=== PATIENT | female | born 1990 | race Caucasian/White ===

== ENCOUNTER 2018-06-02 14:14 | Inpatient (IN) | payer MEDICAID, SELFPAY ==
[2018-06-02 14:33] VITALS: BMI 23.7
[2018-06-02 14:52] VITALS: BP 124/78; PULSE 99; RESP 18; TEMP 37.1
--- NOTE | 2018-06-02 15:24 | PCM.HP.STD ---
Problem List (1) Alcohol withdrawal Status: Acute (2) Opiate withdrawal Status: Acute History of Present Illness Date of Admission: 06/02/18 Chief Complaint: heroin withdrawal The patient is a 28 year old F who presents seeking treatment for her heroin and alcohol. Patient last use was last night. Patient presented to [facility] and her intake scores were 18 and 15 for CIWA and CINA, respectively. Patient to be admitted for further treatment for withdrawal symptoms. Patient currently complaining of nausea, abdominal cramps, restless legs, myalgias. [] Past Medical History Medical History: Medical History (Last Updated 06/02/18 @ 15:27 by Charles Odonnell DO) Alcohol abuse F10.10 Diabetes mellitus type 1 E10.9 on insulin pump Diabetic neuropathy E11.40 Heroin abuse F11.10 Allergies No Known Allergies Allergy (Verified 06/02/18 15:01) Home Medications: Ambulatory Orders Medication Instructions Recorded Fluoxetine [Prozac] 20 mg PO DAILY 06/02/18 Gabapentin 600 mg PO QHS 06/02/18 Gabapentin [Neurontin] 300 mg PO DAILY 06/02/18 Insulin Lispro [Humalog] 0 unit 06/02/18 Surgical History: no surgical history Psychiatric History: No pertinent psych hx [employer] History: No pertinent [employer] history Lives: With Family Smoking Status: Heavy Smoker (>10/day) Tobacco Use: Cigarettes Alcohol: Heavy - 1 pint of vodka/day Drugs: Heroin - *Family History Maternal History Items: No pertinent history Review of Systems Constitutional: Reports: Chills. Denies: Anorexia, Fever Eyes: Denies: Blurred vision, Double vision HEENT: Denies: Head Aches, Sinus Congestion, Sinus Drainage Cardiovascular: Denies: Chest Pain, Palpitations Respiratory: Denies: Cough, Shortness of breath at rest, Sputum production Gastrointestinal: Reports: Abdominal Pain, Nausea. Denies: Vomiting Genitourinary: Denies: Dysuria Musculoskeletal: Reports: - - diffuse myalgias. Denies: Joint Pain, Joint Tenderness Skin: Denies: Dryness, Jaundice Neurological: Denies: Numbness, Tingling, Focal weakness Psychiatric: Denies: Anxiety, Depression Endocrine: Denies: Change in Body Habitus, Heat/ Cold Intolerance Hematologic/ Lymphatic: Denies: Easy Bruising, Easy Bleeding, Hx of blood clot Comment: All review of systems are negative except as mentioned in the history of present illness and the other review of systems. VTE Information - Inpt Only VTE Present on Admission: No VTE Mechan Device Prophylaxis: None VTE Pharm Prophylaxis ordered?: No Reason prophylaxis not ordered:: Procedure Not Indicated Patient Problems: Active and Suspected Problems Alcohol withdrawal (Acute) Opiate withdrawal (Acute) - Physical Exam General: Alert, Cooperative, No apparent distress HEENT: Atraumatic, Normocephalic Oral: Moist Mucosa, No Gingival or Mucosal Lesions/ Ulcerations Neck: No Nodes, Thyroid Normal Size and Texture Lungs: Clear to auscultation, Normal air movement, No rhonchi, No wheeze Cardiovascular: Regular rate, Regular Rhythm, Normal S1, Normal S2, No murmurs Abdomen: Bowel Sounds Present, Soft, Non Tender, Non-Distended, No Hepato-splenomegaly Extremities: No edema, No Calf Tenderness Skin: No rashes, No breakdown Musculoskeletal: No Tenderness to Palpation of Joints or Extremities, No Muscle Wasting Psych/Mental Status: Appropriate, Anxious Vital Signs Temp Pulse Resp BP 37.1 C 99 18 124/78 H 06/02/18 14:52 06/02/18 14:52 06/02/18 14:52 06/02/18 14:52 Oxygen Delivery Method Room Air Weight: 66.7 kg Body Mass Index (BMI) 23.7 Assessment/Plan All Active Problems Alcohol withdrawal (Acute) Opiate withdrawal (Acute) 1. Acute heroin/opiate withdrawal pt with CINA score of 15 Patient will be started on the Subutex taper for medical stabilization for opiates. Plus patient also have other medications to help her with other somatic symptoms. [facility] to facilitate outpatient follow-up once patient can be discharged. Anticipated date of discharge will be June 05. Patient states that she does not share needles but does reuses needles. Check hepatitis C antibody as well HIV 2. Alcohol abuse Patient drinks a pint of vodka per day Patient had a calculated CIWA score of 18, however some this may be overlapped with her opiate withdrawal I am going to hold off on any scheduled benzodiazepines at this time as a feel most of her symptoms are probably related with opiate withdrawal rather than alcohol withdrawal. Patient will have as needed lorazepam for symptoms do get severe enough and if she does start to get more severe than we could certainly reassess and put her on scheduled benzodiazepines but I would like to hold off at this point in time as I do not feel that her symptoms are completely attributable to alcohol rather opiate withdrawal. Patient be on a multivitamin 3. Diabetes mellitus type 1 Patient has an insulin pump and is comfortable managing her insulin Will check periodic with meals blood glucose 4. Venous thromboembolism risk: Low. Encourage patient to ambulate. Code Visit Inpatient E&M: 12264 Init Hosp L2
--- NOTE | 2018-06-02 15:28 | HP.PCM_ITS ---
Problem List (1) Alcohol withdrawal Status: Acute (2) Opiate withdrawal Status: Acute History of Present Illness Date of Admission: 06/02/18 Chief Complaint: heroin withdrawal The patient is a 28 year old F who presents seeking treatment for her heroin and alcohol. Patient last use was last night. Patient presented to [facility] and her intake scores were 18 and 15 for CIWA and CINA, respectively. Patient to be admitted for further treatment for withdrawal symptoms. Patient currently complaining of nausea, abdominal cramps, restless legs, myalgias. [] Past Medical History Medical History: Medical History (Last Updated 06/02/18 @ 15:27 by Charles Odonnell DO) Alcohol abuse F10.10 Diabetes mellitus type 1 E10.9 on insulin pump Diabetic neuropathy E11.40 Heroin abuse F11.10 Allergies No Known Allergies Allergy (Verified 06/02/18 15:01) Home Medications: Ambulatory Orders Medication Instructions Recorded Fluoxetine [Prozac] 20 mg PO DAILY 06/02/18 Gabapentin 600 mg PO QHS 06/02/18 Gabapentin [Neurontin] 300 mg PO DAILY 06/02/18 Insulin Lispro [Humalog] 0 unit 06/02/18 Surgical History: no surgical history Psychiatric History: No pertinent psych hx [employer]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 Denies: Anorexia, Fever Eyes: Denies: Blurred vision, Double vision HEENT: Denies: Head Aches, Sinus Congestion, Sinus Drainage Cardiovascular: Denies: Chest Pain, Palpitations Respiratory: Denies: Cough, Shortness of breath at rest, Sputum production Gastrointestinal: Reports: Abdominal Pain, Nausea. Denies: Vomiting Genitourinary: Denies: Dysuria Musculoskeletal: Reports: - - diffuse myalgias. Denies: Joint Pain, Joint Tenderness Skin: Denies: Dryness, Jaundice Neurological: Denies: Numbness, Tingling, Focal weakness Psychiatric: Denies: Anxiety, Depression Endocrine: Denies: Change in Body Habitus, Heat/ Cold Intolerance Hematologic/ Lymphatic: Denies: Easy Bruising, Easy Bleeding, Hx of blood clot Comment: All review of systems are negative except as mentioned in the history of present illness and the other review of systems. VTE Information - Inpt Only VTE Present on Admission: No VTE Mechan Device Prophylaxis: None VTE Pharm Prophylaxis ordered?: No Reason prophylaxis not ordered:: Procedure Not Indicated Patient Problems: Active and Suspected Problems Alcohol withdrawal (Acute) Opiate withdrawal (Acute) - Physical Exam General: Alert, Cooperative, No apparent distress HEENT: Atraumatic, Normocephalic Oral: Moist Mucosa, No Gingival or Mucosal Lesions/ Ulcerations Neck: No Nodes, Thyroid Normal Size and Texture Lungs: Clear to auscultation, Normal air movement, No rhonchi, No wheeze Cardiovascular: Regular rate, Regular Rhythm, Normal S1, Normal S2, No murmurs Abdomen: Bowel Sounds Present, Soft, Non Tender, Non-Distended, No Hepato- splenomegaly Extremities: No edema, No Calf Tenderness Skin: No rashes, No breakdown Musculoskeletal: No Tenderness to Palpation of Joints or Extremities, No Muscle Wasting Psych/Mental Status: Appropriate, Anxious Vital Signs Temp Pulse Resp BP 37.1 C 99 18 124/78 H 06/02/18 14:52 06/02/18 14:52 06/02/18 14:52 06/02/18 14:52 Oxygen Delivery Method Room Air Weight: 66.7 kg Body Mass Index (BMI) 23.7 Assessment/Plan All Active Problems Alcohol withdrawal (Acute) Opiate withdrawal (Acute) 1. Acute heroin/opiate withdrawal * pt with CINA score of 15 * Patient will be started on the Subutex taper for medical stabilization for opiates. Plus patient also have other medications to help her with other somatic symptoms. * [facility] to facilitate outpatient follow-up once patient can be discharged. Anticipated date of discharge will be June 05. * Patient states that she does not share needles but does reuses needles. * Check hepatitis C antibody as well HIV 2. Alcohol abuse * Patient drinks a pint of vodka per day * Patient had a calculated CIWA score of 18, however some this may be overlapped with her opiate withdrawal * I am going to hold off on any scheduled benzodiazepines at this time as a feel most of her symptoms are probably related with opiate withdrawal rather than alcohol withdrawal. * Patient will have as needed lorazepam for symptoms do get severe enough and if she does start to get more severe than we could certainly reassess and put her on scheduled benzodiazepines but I would like to hold off at this point in time as I do not feel that her symptoms are completely attributable to alcohol rather opiate withdrawal. * Patient be on a multivitamin 3. Diabetes mellitus type 1 * Patient has an insulin pump and is comfortable managing her insulin * Will check periodic with meals blood glucose 4. Venous thromboembolism risk: Low. Encourage patient to ambulate. Code Visit Inpatient E&M: 82694 Init Hosp L2
[2018-06-02] MEDS: Methocarbamol 750 MG Tablet PO (16:13)
[2018-06-02] MEDS: Ibuprofen 600 MG Tablet PO (16:14)
[2018-06-02] MEDS: cloNIDine HCl 0.1 MG Tablet PO ×2 (16:14→21:16)
[2018-06-02] MEDS: Dicyclomine 10 MG Capsule 20 MG PO (16:15)
[2018-06-02] MEDS: Buprenorphine HCl 2 MG TAB.SUBL SL (16:15)
[2018-06-02 16:21] LABS: Absolute Lymphocyte Count 1.52 X10^3/ul (0.83-4.51); Absolute Neutrophil Count 2.7 X10^3/uL (2.0-7.7); Basophil# 0.02 X10^3/uL; Basophil% 0.4 % (0-1); Eosinophils% 2.1 % (0-5); Hematocrit 37.9 % (37-47); Hemoglobin 12.7 g/dl (12.0-15.0); Lymphocyte # 1.52 X10^3/ul (4.0); Lymphocyte % 32.5 % (19-41); Mean Corp Hgb Conc 33.5 g/gl (32-36); Mean Corpuscular Hgb 28.5 pg (27.0-32.0); Mean Corpuscular Volume 85.2 fL (81-99); Mean Platelet Vol. 9.9 fl (6.2-12.0); Monocyte# 0.36 X10^3/uL; Monocyte% 7.7 % (0-10); Neutrophil # 2.68 X10^3/uL (2.7-7.7); Neutrophil % 57.3 % (47-70); POSITIVE COUNT NO; POSITIVE DIFFERENTIAL NO; POSITIVE MORPHOLOGY NO; Platelet Count 229 K/mm3 (150-450); RBC Distribution Width CV 13.1 % (11.6-14.6); RBC Distribution Width SD 40.5 fl (35.1-43.9); Red Blood Count 4.45 M/mm3 (4.2-5.4); White Blood Count 4.7 K/mm3 (4.4-11.0)
[2018-06-02 16:41] LABS: Bedside Glucose 361 mg/dL (70-110)
[2018-06-02 16:57] LABS: ALB/GLOB Ratio 0.8 RATIO (0.9-2.4); AST(SGOT) 51 U/L (15-37); Alanine Aminotransfer ALT/SGPT 51 U/L (13-56); Albumin, Serum 3.6 g/dL (3.2-5.0); Alkaline Phosphatase 132 U/L (45-117); Anion Gap 7 (5-15); BUN 20 mg/dL (7-18); BUN/Creat Ratio 15.7 RATIO (10-20); Calcium,Total 8.8 mg/dL (8.5-10.1); Chloride 96 mmol/L (98-107); Creatinine, Serum 1.27 mg/dL (0.55-1.02); EST Glomerular Filtration Rate 52 mL/min (>60); Est Glom Filt Rate - Afr Amer 63 mL/min (>60); Estimated Creatinine Clearance 60.64 ml/min; Globulin 4.7 g/dL (2.2-4.2); Glucose 293 mg/dL (74-106); Potassium 3.3 mmol/L (3.5-5.1); Protein, Total 8.3 g/dL (6.4-8.2); Sodium Level 135 mmol/L (136-145)
[2018-06-02 17:09] LABS: Pregnancy, Serum, hCG Quali. NEGATIVE Negative (0-9 Nonpreg)
[2018-06-02 17:43] LABS: HIV - WCH Non-Reactive (Nonreactive)
[2018-06-02 21:10] VITALS: BP 113/82; PULSE 110; RESP 16; TEMP 37.2
[2018-06-02] MEDS: traZODone 50 MG Tablet PO (21:17)
[2018-06-02] MEDS: hydrOXYzine PAM 25 MG Capsule 50 MG PO (21:17)
[2018-06-02] MEDS: LORazepam 1 MG Tablet 2 MG PO (21:17)
[2018-06-02 21:30] LABS: Bedside Glucose 351 mg/dL (70-110)
[2018-06-03] VITALS (10 sets, daily range): BP systolic 94–144; BP diastolic 72–121; PULSE 78–138; RESP 14–20; TEMP 36.5–36.9; O2SAT 99–100
[2018-06-03] MEDS: Ibuprofen 600 MG Tablet PO (00:50)
[2018-06-03] MEDS: Methocarbamol 750 MG Tablet PO ×2 (00:50→07:39)
[2018-06-03] MEDS: Buprenorphine HCl 2 MG TAB.SUBL SL ×3 (00:50→16:38)
[2018-06-03] MEDS: cloNIDine HCl 0.1 MG Tablet PO ×4 (00:52→07:39)
[2018-06-03] MEDS: LORazepam 1 MG Tablet 2 MG PO ×3 (02:53→05:10)
[2018-06-03] MEDS: hydrOXYzine PAM 25 MG Capsule 50 MG PO (03:35)
[2018-06-03] MEDS: chlordiazePOXIDE 25 MG Capsule 50 MG PO (05:23)
--- NOTE | 2018-06-03 05:24 | NURSING ---
Patient thrashing in bed, talking jibberish, very restles. Dr. Estrella to floor with orders. Will Monitor.
[2018-06-03 05:47] LABS: Amphetamine Urine VISTA NEGATIVE (<1000 ng/mL); Barbiturate Urine VISTA NEGATIVE (< 200 ng/mL); Benzodiazepine Urine VISTA NEGATIVE (< 200 ng/mL); Cocaine Urine VISTA NEGATIVE (< 300 ng/mL); Ecstacy Urine VISTA NEGATIVE (< 500 ng/mL); Methadone Urine VISTA NEGATIVE (< 300 ng/mL); PCP Urine VISTA NEGATIVE (< 25 ng/mL); THC Urine VISTA NEGATIVE (< 50 ng/mL); Vista UDS pH Range 6
[2018-06-03] MEDS: Gabapentin 300 MG Capsule PO (06:27)
[2018-06-03] MEDS: Haloperidol 1 MG Tablet 2 MG PO (06:27)
[2018-06-03] MEDS: Thiamine Hydrochloride 100 MG Tablet PO (07:33)
[2018-06-03] MEDS: Multivitamins,Therapeutic Tablet 1 TABLET PO (07:33)
[2018-06-03] MEDS: Folic Acid 1 MG Tablet PO (07:33)
[2018-06-03] MEDS: FLUoxetine 20 MG Capsule PO (07:34)
--- NOTE | 2018-06-03 08:27 | PCM.PN.HOSP ---
Patient Problems: Active and Suspected Problems (Last Updated 06/02/18 @ 15:27 by Charles Odonnell DO) Alcohol withdrawal (Acute) Opiate withdrawal (Acute) Subjective: confused early this am and this morning. Objective: patient noted to be in hallway confused. patient received buprenorphine at 0730, 2mg Haldol at 0627, 50mg Librium at 0523, lorazepam 2mg at 0253, 0406 and 0510. Vitals/I&O's: Vital Signs Temp Pulse Resp BP Pulse Ox 36.9 C 83 18 135/115 H 100 06/03/18 07:39 06/03/18 07:39 06/03/18 07:39 06/03/18 07:39 06/03/18 07:31 Oxygen Delivery Method Room Air Weight: 66.7 kg Body Mass Index (BMI) 23.7 Intake and Output for Last 24 Hours 06/01/18 06/02/18 06/03/18 23:59 23:59 23:59 Intake Total 400 / 400 1100 / 1100 Balance 400 / 400 1100 / 1100 General: Confused, - - very groggy. HEENT: Atraumatic, Normocephalic Oral: Moist Mucosa, No Gingival or Mucosal Lesions/ Ulcerations Neck: No Nodes, Thyroid Normal Size and Texture Lungs: Clear to auscultation, Normal air movement, No rhonchi, No wheeze Cardiovascular: Regular rate, Regular Rhythm, Normal S1, Normal S2, No murmurs Abdomen: Bowel Sounds Present, Soft, Non Tender, Non-Distended, No Hepato-splenomegaly Extremities: No clubbing, No edema, No Calf Tenderness Skin: No rashes, No breakdown Musculoskeletal: No Tenderness to Palpation of Joints or Extremities, No Muscle Wasting Neurological: Muscle tone normal, Sensory exam intact to light touch and pain Psych/Mental Status: - - confused Laboratory Results 06/02/18 16:09: WBC 4.7, RBC 4.45, Hgb 12.7, Hct 37.9, MCV 85.2, MCH 28.5, MCHC 33.5, RDW 13.1, RDW Differential 40.5, Plt Count 229, MPV 9.9, Immature Gran % (Auto) 0.000, Neut % (Auto) 57.3, Lymph % (Auto) 32.5, Loup % (Auto) 7.7, Eos % (Auto) 2.1, Baso % (Auto) 0.4, Absolute Neuts (auto) 2.7, Absolute Lymphs (auto) 1.52, Total Counted Not Reportable 06/02/18 16:09: Sodium 135 L, Potassium 3.3 L, Chloride 96 L, Carbon Dioxide 32.0, Anion Gap 7, BUN 20 H, Creatinine 1.27 H, Estim Creat Clear Calc 60.64, Est GFR (MDRD) Af Amer 63, Est GFR (MDRD) Non-Af 52 L, BUN/Creatinine Ratio 15.7, Glucose 293 H, Calcium 8.8, Total Bilirubin 0.40, AST 51 H, ALT 51, Alkaline Phosphatase 132 H, Total Protein 8.3 H, Albumin 3.6, Globulin 4.7 H, Albumin/Globulin Ratio 0.8 L 06/02/18 16:09: Serum , Qual NEGATIVE 06/02/18 16:09: Hepatitis C Ab (EIA) Pending, Hepatitis C Comment Pending 06/02/18 16:09: HIV 1&2 Antibody Non-Reactive 06/02/18 16:32: POC Glucose 361 H 06/02/18 21:22: POC Glucose 351 H 06/03/18 05:15: Urine Opiates Screen POSITIVE H, Urine Methadone Screen NEGATIVE, Ur Barbiturates Screen NEGATIVE, Ur Phencyclidine Scrn NEGATIVE, Ur Amphetamines Screen NEGATIVE, U Methamphetamin-MDMA NEGATIVE, U Benzodiazepines Scrn NEGATIVE, Urine Cocaine Screen NEGATIVE, U Cannabinoids Screen NEGATIVE, Ur Drug Screen Comment Current Medications Acetaminophen (Tylenol) 500 mg PO Q4H PRN PRN PRN Reason: Temp > 100.4 F Buprenorphine HCl (Buprenorphine Hcl) 4 mg SL Q8H PABLO PRN Reason: Taper Stop: 06/05/18 19:59 Last Admin: 06/03/18 07:32 Dose: 4 mg Clonidine (Catapres) 0.1 mg PO Q2H PRN PRN PRN Reason: Hot/Cold Sweats or Anxiety Last Admin: 06/03/18 07:39 Dose: 0.1 mg Dicyclomine HCl (Bentyl) 20 mg PO Q6H PRN PRN PRN Reason: abdominal discomfort Last Admin: 06/02/18 16:15 Dose: 20 mg Fluoxetine HCl (Prozac) 20 mg PO DAILY [facility] Last Admin: 06/03/18 07:34 Dose: 20 [facility] Last Admin: 06/03/18 07:33 Dose: 1 mg [facility]in) [facility] Last Admin: 06/03/18 06:27 Dose: 300 mg Gabapentin (Neurontin) 600 mg PO QHS [facility] Hydroxyzine HCl (Vistaril Vial) 50 mg IM Q6H PRN PRN PRN Reason: Breakthrough Anxiety Hydroxyzine Pamoate (Vistaril Pamoate Capsule) 50 mg PO Q6H PRN PRN PRN Reason: Mild Anxiety (score 1/3) Last Admin: 06/03/18 03:35 Dose: 50 mg Ibuprofen (Motrin) 600 mg PO Q8H PRN PRN PRN Reason: Mild-Moderate Pain (1-5/10) Last Admin: 06/03/18 00:50 Dose: 600 mg Loperamide HCl (Imodium) 2 - 4 mg PO UD PRN PRN Reason: LOOSE STOOLS Lorazepam (Ativan) 2 mg PO Q2H PRN PRN; Protocol PRN Reason: CIWA score > 8 but <15 Last Admin: 06/03/18 05:10 Dose: 2 mg Methocarbamol (Methocarbamol) 750 mg PO Q6H PRN PRN PRN Reason: Muscle Aches Last Admin: 06/03/18 07:39 Dose: 750 mg [facility]amin) [facility] Last Admin: 06/03/18 07:33 Dose: 1 tablet Nicotine (Nicoderm Cq (Pbkc)) 21 mg TRANSDERM. DAILY [facility] Last Admin: 06/03/18 07:33 Dose: 21 mg Thiamine HCl (Vitamin B1) [facility] Last Admin: 06/03/18 07:33 Dose: 100 mg Trazodone HCl (Desyrel) 50 mg PO QHS [facility] Last Admin: 06/02/18 21:17 Dose: 50 mg Medical Necessity - Tobacco Use Smoking Status: Heavy Smoker (>10/day) Tobacco Use: Cigarettes Assessment/Plan All Active Problems (Last Updated 06/02/18 @ 15:27 by Charles Odonnell DO) Alcohol withdrawal (Acute) Opiate withdrawal (Acute) 1. Acute heroin/opiate withdrawal pt with CINA score of 15 Patient will be started on the Subutex taper for medical stabilization for opiates. Plus patient also have other medications to help her with other somatic symptoms. [facility] to facilitate outpatient follow-up once patient can be discharged. Anticipated date of discharge will be June 05. Patient states that she does not share needles but does reuses needles. Check hepatitis C antibody as well HIV 2. Alcohol abuse Patient drinks a pint of vodka per day Patient had a calculated CIWA score of 18, however some this may be overlapped with her opiate withdrawal I am going to hold off on any scheduled benzodiazepines at this time as a feel most of her symptoms are probably related with opiate withdrawal rather than alcohol withdrawal. Patient will have as needed lorazepam for symptoms do get severe enough and if she does start to get more severe than we could certainly reassess and put her on scheduled benzodiazepines but I would like to hold off at this point in time as I do not feel that her symptoms are completely attributable to alcohol rather opiate withdrawal. Patient be on a multivitamin Patient received 4mg of ativan and 50mg of Librium this AM I am still concerned her symptoms may not be acute alcohol withdrawal, and now patient is lethargic, likely from medication DC Ativan altogether 3. Diabetes mellitus type 1 Patient has an insulin pump and is comfortable managing her insulin Will check periodic with meals blood glucose Now patient is confused and unable to administer her insulin pump. MBS were very elevated yesterday (not checked today) since patient cannot be relied upon to administer insulin pump, will DC and start her on basal and pradial insulin 4. Toxic encephalopathy apparently patient was confused last night, unclear how confused, but she is likely much worse now, which I feel is due to too many sedating medications 4. Venous thromboembolism risk: Low. Encourage patient to ambulate. Code Visit Inpatient E&M: 84078 Subs Hosp L3
--- NOTE | 2018-06-03 08:31 | PN_ITS ---
Patient Problems: Active and Suspected Problems (Last Updated 06/02/18 @ 15:27 by Charles Odonnell DO ) Alcohol withdrawal (Acute) Opiate withdrawal (Acute) Subjective: confused early this am and this morning. Objective: patient noted to be in hallway confused. patient received buprenorphine at 0730 , 2mg Haldol at 0627, 50mg Librium at 0523, lorazepam 2mg at 0253, 0406 and 0510. Vitals/I&O's: Vital Signs Temp Pulse Resp BP Pulse Ox 36.9 C 83 18 135/115 H 100 06/03/18 07:39 06/03/18 07:39 06/03/18 07:39 06/03/18 07:39 06/03/18 07:31 Oxygen Delivery Method Room Air Weight: 66.7 kg Body Mass Index (BMI) 23.7 Intake and Output for Last 24 Hours 06/01/18 06/02/18 06/03/18 23:59 23:59 23:59 Intake Total 400 / 400 1100 / 1100 Balance 400 / 400 1100 / 1100 General: Confused, - - very groggy. HEENT: Atraumatic, Normocephalic Oral: Moist Mucosa, No Gingival or Mucosal Lesions/ Ulcerations Neck: No Nodes, Thyroid Normal Size and Texture Lungs: Clear to auscultation, Normal air movement, No rhonchi, No wheeze Cardiovascular: Regular rate, Regular Rhythm, Normal S1, Normal S2, No murmurs Abdomen: Bowel Sounds Present, Soft, Non Tender, Non-Distended, No Hepato- splenomegaly Extremities: No clubbing, No edema, No Calf Tenderness Skin: No rashes, No breakdown Musculoskeletal: No Tenderness to Palpation of Joints or Extremities, No Muscle Wasting Neurological: Muscle tone normal, Sensory exam intact to light touch and pain Psych/Mental Status: - - confused Laboratory Results 06/02/18 16:09: WBC 4.7, RBC 4.45, Hgb 12.7, Hct 37.9, MCV 85.2, MCH 28.5, MCHC 33.5, RDW 13.1, RDW Differential 40.5, Plt Count 229, MPV 9.9, Immature Gran % ( Auto) 0.000, Neut % (Auto) 57.3, Lymph % (Auto) 32.5, [place] % (Auto) 7.7, Eos % ( Auto) 2.1, Baso % (Auto) 0.4, Absolute Neuts (auto) 2.7, Absolute Lymphs (auto) 1.52, Total Counted Not Reportable 06/02/18 16:09: Sodium 135 L, Potassium 3.3 L, Chloride 96 L, Carbon Dioxide 32.0, Anion Gap 7, BUN 20 H, Creatinine 1.27 H, Estim Creat Clear Calc 60.64, Est GFR (MDRD) Af Amer 63, Est GFR (MDRD) Non-Af 52 L, BUN/Creatinine Ratio 15.7 , Glucose 293 H, Calcium 8.8, Total Bilirubin 0.40, AST 51 H, ALT 51, Alkaline Phosphatase 132 H, Total Protein 8.3 H, Albumin 3.6, Globulin 4.7 H, Albumin/ Globulin Ratio 0.8 L 06/02/18 16:09: Serum , Qual NEGATIVE 06/02/18 16:09: Hepatitis C Ab (EIA) Pending, Hepatitis C Comment Pending 06/02/18 16:09: HIV 1&2 Antibody Non-Reactive 06/02/18 16:32: POC Glucose 361 H 06/02/18 21:22: POC Glucose 351 H 06/03/18 05:15: Urine Opiates Screen POSITIVE H, Urine Methadone Screen NEGATIVE , Ur Barbiturates Screen NEGATIVE, Ur Phencyclidine Scrn NEGATIVE, Ur Amphetamines Screen NEGATIVE, U Methamphetamin-MDMA NEGATIVE, U Benzodiazepines Scrn NEGATIVE, Urine Cocaine Screen NEGATIVE, U Cannabinoids Screen NEGATIVE, Ur Drug Screen Comment Current Medications Acetaminophen (Tylenol) 500 mg PO Q4H PRN PRN PRN Reason: Temp > 100.4 F Buprenorphine HCl (Buprenorphine Hcl) 4 mg SL Q8H PABLO PRN Reason: Taper Stop: 06/05/18 19:59 Last Admin: 06/03/18 07:32 Dose: 4 mg Clonidine (Catapres) 0.1 mg PO Q2H PRN PRN PRN Reason: Hot/Cold Sweats or Anxiety Last Admin: 06/03/18 07:39 Dose: 0.1 mg Dicyclomine HCl (Bentyl) 20 mg PO Q6H PRN PRN PRN Reason: abdominal discomfort Last Admin: 06/02/18 16:15 Dose: 20 mg Fluoxetine HCl (Prozac) 20 mg PO DAILY [facility] Last Admin: 06/03/18 07:34 Dose: 20 mg [facility] ([facility] Acid) [facility] Last Admin: 06/03/18 07:33 Dose: 1 mg Gabapentin (Neurontin) [facility] Last Admin: 06/03/18 06:27 Dose: 300 mg Gabapentin (Neurontin) 600 mg PO QHS [facility] Hydroxyzine HCl (Vistaril Vial) 50 mg IM Q6H PRN PRN PRN Reason: Breakthrough Anxiety Hydroxyzine Pamoate (Vistaril Pamoate Capsule) 50 mg PO Q6H PRN PRN PRN Reason: Mild Anxiety (score 1/3) Last Admin: 06/03/18 03:35 Dose: 50 mg Ibuprofen (Motrin) 600 mg PO Q8H PRN PRN PRN Reason: Mild-Moderate Pain (1-5/10) Last Admin: 06/03/18 00:50 Dose: 600 mg Loperamide HCl (Imodium) 2 - 4 mg PO UD PRN PRN Reason: LOOSE STOOLS Lorazepam (Ativan) 2 mg PO Q2H PRN PRN; Protocol PRN Reason: CIWA score > 8 but <15 Last Admin: 06/03/18 05:10 Dose: 2 mg Methocarbamol (Methocarbamol) 750 mg PO Q6H PRN PRN PRN Reason: Muscle Aches Last Admin: 06/03/18 07:39 Dose: 750 mg Multivitamins (Multivitamin) [facility] Last Admin: 06/03/18 07:33 Dose: 1 tablet Nicotine (Nicoderm Cq (Pbkc)) 21 mg TRANSDERM. DAILY [facility] Last Admin: 06/03/18 07:33 Dose: 21 mg Thiamine HCl (Vitamin B1) [facility] Last Admin: 06/03/18 07:33 Dose: 100 mg Trazodone HCl (Desyrel) 50 mg PO QHS [facility] Last Admin: 06/02/18 21:17 Dose: 50 mg Medical Necessity - Tobacco Use Smoking Status: Heavy Smoker (>10/day) Tobacco Use: Cigarettes Assessment/Plan All Active Problems (Last Updated 06/02/18 @ 15:27 by Charles Odonnell DO) Alcohol withdrawal (Acute) Opiate withdrawal (Acute) 1. Acute heroin/opiate withdrawal * pt with CINA score of 15 * Patient will be started on the Subutex taper for medical stabilization for opiates. Plus patient also have other medications to help her with other somatic symptoms. * [facility] to facilitate outpatient follow-up once patient can be discharged. Anticipated date of discharge will be June 05. * Patient states that she does not share needles but does reuses needles. * Check hepatitis C antibody as well HIV 2. Alcohol abuse * Patient drinks a pint of vodka per day * Patient had a calculated CIWA score of 18, however some this may be overlapped with her opiate withdrawal * I am going to hold off on any scheduled benzodiazepines at this time as a feel most of her symptoms are probably related with opiate withdrawal rather than alcohol withdrawal. * Patient will have as needed lorazepam for symptoms do get severe enough and if she does start to get more severe than we could certainly reassess and put her on scheduled benzodiazepines but I would like to hold off at this point in time as I do not feel that her symptoms are completely attributable to alcohol rather opiate withdrawal. * Patient be on a multivitamin * Patient received 4mg of ativan and 50mg of Librium this AM * I am still concerned her symptoms may not be acute alcohol withdrawal, and now patient is lethargic, likely from medication * DC Ativan altogether 3. Diabetes mellitus type 1 * Patient has an insulin pump and is comfortable managing her insulin * Will check periodic with meals blood glucose * Now patient is confused and unable to administer her insulin pump. * MBS were very elevated yesterday (not checked today) * since patient cannot be relied upon to administer insulin pump, will DC and start her on basal and pradial insulin 4. Toxic encephalopathy * apparently patient was confused last night, unclear how confused, but she is likely much worse now, which I feel is due to too many sedating medications 4. Venous thromboembolism risk: Low. Encourage patient to ambulate. Code Visit Inpatient E&M: 72755 Subs Hosp L3
--- NOTE | 2018-06-03 08:48 | NURSING ---
Around 0730 this am VS obtained. Pt would not hold arms still and constantly trying to remove BP cuff. best reading obtained charted but movement noted to contribute to high BP.
[2018-06-03 09:16] LABS: Bedside Glucose > 500 mg/dL (70-110)
[2018-06-03 10:31] LABS: Glucose 760 mg/dL (74-106)
[2018-06-03] MEDS: Insulin Lispro 100 UNIT/ML INSULN.PEN 15 UNIT SC (10:55)
[2018-06-03 11:30] LABS: Bedside Glucose > 500 mg/dL (70-110)
[2018-06-03 11:31] LABS: BNP,B-Type NATRIURETIC PEPTIDE 46.3 pg/mL (0-100)
[2018-06-03 12:58] LABS: Anion Gap 12 (5-15); BUN 18 mg/dL (7-18); BUN/Creat Ratio 16.8 RATIO (10-20); Calcium,Total 8.8 mg/dL (8.5-10.1); Chloride 98 mmol/L (98-107); Creatinine, Serum 1.07 mg/dL (0.55-1.02); EST Glomerular Filtration Rate 64 mL/min (>60); Est Glom Filt Rate - Afr Amer 77 mL/min (>60); Estimated Creatinine Clearance 71.97 ml/min; Glucose 457 mg/dL (74-106); Potassium 3.9 mmol/L (3.5-5.1); Sodium Level 136 mmol/L (136-145)
[2018-06-03] MEDS: Insulin Lispro 100 UNIT/ML INSULN.PEN SQ ×3 (13:04→18:50)
[2018-06-03 13:56] LABS: Bedside Glucose 236 mg/dL (70-110)
[2018-06-03 17:00] LABS: Bedside Glucose 69 mg/dL (70-110)
[2018-06-03] MEDS: Glucerna Shake 120 ML LIQUID PO ×2 (18:30→22:25)
[2018-06-03 18:56] LABS: Bedside Glucose 219 mg/dL (70-110)
[2018-06-03] MEDS: Gabapentin 600 MG Tablet PO (22:25)
[2018-06-03 22:46] LABS: Bedside Glucose 220 mg/dL (70-110)
[2018-06-04] VITALS (7 sets, daily range): BP systolic 119–136; BP diastolic 75–92; PULSE 70–84; RESP 16–18; TEMP 36.5–37.1; O2SAT 99
[2018-06-04] MEDS: Buprenorphine HCl 2 MG TAB.SUBL SL ×3 (00:02→20:47)
[2018-06-04] MEDS: cloNIDine HCl 0.1 MG Tablet PO ×4 (02:50→21:27)
[2018-06-04] MEDS: hydrOXYzine PAM 25 MG Capsule 50 MG PO ×3 (02:50→21:27)
[2018-06-04 02:56] LABS: Bedside Glucose > 500 mg/dL (70-110)
[2018-06-04] MEDS: Methocarbamol 750 MG Tablet PO ×2 (03:12→14:17)
[2018-06-04] MEDS: Insulin Lispro 100 UNIT/ML INSULN.PEN 15 UNIT SC ×2 (03:23→06:02)
[2018-06-04 04:01] LABS: Absolute Lymphocyte Count 1.38 X10^3/ul (0.83-4.51); Absolute Neutrophil Count 3.9 X10^3/uL (2.0-7.7); Basophil# 0.02 X10^3/uL; Basophil% 0.3 % (0-1); Eosinophil# 0.13 X10^3/uL; Eosinophils% 2.2 % (0-5); Hematocrit 37.8 % (37-47); Hemoglobin 13.1 g/dl (12.0-15.0); Lymphocyte # 1.38 X10^3/ul (4.0); Lymphocyte % 23.2 % (19-41); Mean Corp Hgb Conc 34.7 g/gl (32-36); Mean Corpuscular Hgb 29.5 pg (27.0-32.0); Mean Corpuscular Volume 85.1 fL (81-99); Monocyte# 0.46 X10^3/uL; Monocyte% 7.7 % (0-10); Neutrophil # 3.94 X10^3/uL (2.7-7.7); Neutrophil % 66.4 % (47-70); POSITIVE COUNT NO; POSITIVE DIFFERENTIAL NO; POSITIVE MORPHOLOGY NO; Platelet Count 210 K/mm3 (150-450); RBC Distribution Width CV 12.6 % (11.6-14.6); RBC Distribution Width SD 38.4 fl (35.1-43.9); Red Blood Count 4.44 M/mm3 (4.2-5.4); White Blood Count 5.9 K/mm3 (4.4-11.0)
[2018-06-04 04:09] LABS: Anion Gap 14 (5-15); BUN 20 mg/dL (7-18); Calcium,Total 8.5 mg/dL (8.5-10.1); Chloride 93 mmol/L (98-107); Creatinine, Serum 1.25 mg/dL (0.55-1.02); EST Glomerular Filtration Rate 53 mL/min (>60); Est Glom Filt Rate - Afr Amer 65 mL/min (>60); Estimated Creatinine Clearance 61.61 ml/min; Glucose 878 mg/dL (74-106); Potassium 5.4 mmol/L (3.5-5.1); Sodium Level 131 mmol/L (136-145)
[2018-06-04] MEDS: Ibuprofen 600 MG Tablet PO ×2 (04:31→14:16)
[2018-06-04 04:34] LABS: Osmolality, Serum 322 mOsm/KG (275-295)
[2018-06-04 05:31] LABS: Bedside Glucose > 500 mg/dL (70-110)
[2018-06-04 06:06] LABS: Glucose 733 mg/dL (74-106)
[2018-06-04] MEDS: 0.9% Normal Saline 1,000 ML 999 ML IV (06:17)
--- NOTE | 2018-06-04 06:21 | NURSING ---
Dr Fair reviewed patient and ordered blood sugar levels every 2 hours and another fluid bolus after initial bolus complete. Possible start pt's own insulin pump later on today if patient's blood sugars lower below 300mg/dL and patient remains alert and orientated.
[2018-06-04] MEDS: 0.45% Normal Saline 1,000 ML 1000 ML IV (07:29)
[2018-06-04] MEDS: Thiamine Hydrochloride 100 MG Tablet PO (07:36)
[2018-06-04] MEDS: Multivitamins,Therapeutic Tablet 1 TABLET PO (07:36)
[2018-06-04] MEDS: Gabapentin 300 MG Capsule PO (07:36)
[2018-06-04] MEDS: Folic Acid 1 MG Tablet PO (07:36)
[2018-06-04 07:51] LABS: Anion Gap 13 (5-15); BUN 17 mg/dL (7-18); BUN/Creat Ratio 16.5 RATIO (10-20); Calcium,Total 8.2 mg/dL (8.5-10.1); Chloride 99 mmol/L (98-107); Creatinine, Serum 1.03 mg/dL (0.55-1.02); EST Glomerular Filtration Rate 67 mL/min (>60); Est Glom Filt Rate - Afr Amer 81 mL/min (>60); Estimated Creatinine Clearance 74.76 ml/min; Glucose 453 mg/dL (74-106); Potassium 3.6 mmol/L (3.5-5.1); Sodium Level 136 mmol/L (136-145)
[2018-06-04 08:01] LABS: Bedside Glucose 335 mg/dL (70-110)
[2018-06-04] MEDS: Insulin Lispro 100 UNIT/ML INSULN.PEN SC ×8 (08:07→22:44)
[2018-06-04] MEDS: Insulin Lispro 100 UNIT/ML INSULN.PEN SQ (08:07)
[2018-06-04] MEDS: 0.45% Normal Saline 1,000 ML 250 ML IV ×3 (08:54→18:01)
--- NOTE | 2018-06-04 09:56 | PCM.PN.HOSP ---
Patient Problems: Active and Suspected Problems (Last Updated 06/02/18 @ 15:27 by Charles Odonnell DO) Alcohol withdrawal (Acute) Opiate withdrawal (Acute) Subjective: Was yesterday and ambulating and mentating properly after the initial encephalopathy. This morning, patient is very somnolent and difficult to arouse so no history can be obtained directly from time. Patient has not received any potentiating medications this morning with the exception of her Suboxone. Given the fact that the patient is a [facility] patient patient did receive numerous candies and baked goods from the [employer] basket by the [employer]. Vitals/I&O's: Vital Signs Temp Pulse Resp BP Pulse Ox 36.8 C 70 18 136/92 H 99 06/04/18 02:49 06/04/18 04:49 06/04/18 02:49 06/04/18 04:49 06/04/18 02:46 Oxygen Delivery Method Room Air Weight: 66.7 kg Body Mass Index (BMI) 23.7 Intake and Output for Last 24 Hours 06/02/18 06/03/18 06/04/18 23:59 23:59 23:59 Intake Total 400 / 400 1340 / 1340 637 / 637 Balance 400 / 400 1340 / 1340 637 / 637 General: - - Somnolent. Afebrile. Awakes slightly to voice but then quickly dozes off HEENT: Atraumatic, Normocephalic Oral: Moist Mucosa, No Gingival or Mucosal Lesions/ Ulcerations Neck: No Nodes, Thyroid Normal Size and Texture Lungs: Clear to auscultation, Normal air movement, No rhonchi, No wheeze Cardiovascular: Regular rate, Regular Rhythm, Normal S1, Normal S2, No murmurs Abdomen: Bowel Sounds Present, Soft, Non Tender, Non-Distended, No Hepato-splenomegaly Extremities: No edema, No Calf Tenderness Skin: No rashes, No breakdown Laboratory Results 06/03/18 09:28: Glucose 760 H* 06/03/18 10:54: B-Natriuretic Peptide 46.3 06/03/18 11:18: Sodium 136, Potassium 3.9, Chloride 98, Carbon Dioxide 26.0, Anion Gap 12, BUN 18, Creatinine 1.07 H, Estim Creat Clear Calc 71.97, Est GFR (MDRD) Af Amer 77, Est GFR (MDRD) Non-Af 64, BUN/Creatinine Ratio 16.8, Glucose 457 H*, Calcium 8.8 06/03/18 11:28: POC Glucose > 500 H* 06/03/18 13:45: POC Glucose 236 H 06/03/18 16:44: POC Glucose 69 L 06/03/18 18:49: POC Glucose 219 H 06/03/18 22:20: POC Glucose 220 H 06/04/18 02:42: POC Glucose > 500 H* 06/04/18 03:25: WBC 5.9, RBC 4.44, Hgb 13.1, Hct 37.8, MCV 85.1, MCH 29.5, MCHC 34.7, RDW 12.6, RDW Differential 38.4, Plt Count 210, MPV 11.0, Immature Gran % (Auto) 0.200, Neut % (Auto) 66.4, Lymph % (Auto) 23.2, [place] % (Auto) 7.7, Eos % (Auto) 2.2, Baso % (Auto) 0.3, Absolute Neuts (auto) 3.9, Absolute Lymphs (auto) 1.38, Total Counted Not Reportable 06/04/18 03:25: Sodium Cancelled, Potassium Cancelled, Chloride Cancelled, Carbon Dioxide Cancelled, Anion Gap Cancelled, BUN Cancelled, Creatinine Cancelled, Estim Creat Clear Calc Cancelled, Est GFR (MDRD) Af Amer Cancelled, Est GFR (MDRD) Non-Af Cancelled, BUN/Creatinine Ratio Cancelled, Glucose Cancelled, Calcium Cancelled 06/04/18 03:25: Glucose Cancelled 06/04/18 03:25: Acetone Level NEGATIVE 06/04/18 03:25: Sodium 131 L, Potassium 5.4 H, Chloride 93 L, Carbon Dioxide 24.0, Anion Gap 14, BUN 20 H, Creatinine 1.25 H, Estim Creat Clear Calc 61.61, Est GFR (MDRD) Af Amer 65, Est GFR (MDRD) Non-Af 53 L, BUN/Creatinine Ratio 16.0, Glucose 878 H*, Calcium 8.5 06/04/18 03:25: Serum Osmolality 322 H 06/04/18 05:25: POC Glucose > 500 H* 06/04/18 05:35: Glucose 733 H* 06/04/18 07:30: Sodium 136, Potassium 3.6, Chloride 99, Carbon Dioxide 24.0, Anion Gap 13, BUN 17, Creatinine 1.03 H, Estim Creat Clear Calc 74.76, Est GFR (MDRD) Af Amer 81, Est GFR (MDRD) Non-Af 67, BUN/Creatinine Ratio 16.5, Glucose 453 H*, Calcium 8.2 L 06/04/18 07:57: POC Glucose 335 H 06/04/18 09:50: Sodium Pending, Potassium Pending, Chloride Pending, Carbon Dioxide Pending, Anion Gap Pending, BUN Pending, Creatinine Pending, Est GFR (MDRD) Af Amer Pending, Est GFR (MDRD) Non-Af Pending, BUN/Creatinine Ratio Pending, Glucose Pending, Calcium Pending Current Medications Acetaminophen (Tylenol) 500 mg PO Q4H PRN PRN PRN Reason: Temp > 100.4 F Buprenorphine HCl (Buprenorphine Hcl) 2 mg SL Q12H PABLO PRN Reason: Taper Stop: 06/05/18 19:59 Last Admin: 06/04/18 07:45 Dose: 2 mg Clonidine (Catapres) 0.1 mg PO Q2H PRN PRN PRN Reason: Hot/Cold Sweats or Anxiety Last Admin: 06/04/18 04:49 Dose: 0.1 mg Dextrose (D50w Syringe) 0 gm IV X1 PRN; Protocol PRN Reason: Hypoglycemia Dicyclomine HCl (Bentyl) 20 mg PO Q6H PRN PRN PRN Reason: abdominal discomfort Last Admin: 06/02/18 16:15 Dose: 20 mg Fluoxetine HCl (Prozac) 20 mg PO DAILY [facility] Last Admin: 06/03/18 07:34 Dose: 20 mg [facility]) [facility] Last Admin: 06/04/18 07:36 Dose: 1 mg Gabapentin (Neurontin) [facility] Last Admin: 06/04/18 07:36 Dose: 300 mg Gabapentin (Neurontin) 600 mg PO QHS [facility] Last Admin: 06/03/18 22:25 Dose: 600 mg Glucagon () 1 mg IM .X1 PRN PRN Reason: Hypoglycemia Hydroxyzine HCl (Vistaril Vial) 50 mg IM Q6H PRN PRN PRN Reason: Breakthrough Anxiety Hydroxyzine Pamoate (Vistaril Pamoate Capsule) 50 mg PO Q6H PRN PRN PRN Reason: Mild Anxiety (score 1/3) Last Admin: 06/04/18 02:50 Dose: 50 mg Sodium Chloride () 1,000 mls @ 250 mls/hr IV .Q4H [facility] Last Admin: 06/04/18 08:54 Dose: 250 mls/hr Ibuprofen (Motrin) 600 mg PO Q8H PRN PRN PRN Reason: Mild-Moderate Pain (1-5/10) Last Admin: 06/04/18 04:31 Dose: 600 mg Insulin Glargine (Lantus (Bkc)) 30 units SC BREAKFAST PABLO Insulin Human Lispro (Humalog Kwikpen (Bkc)) 0 unit SC Q2H PABLO PRN Reason: Protocol Last Admin: 06/04/18 08:07 Dose: 5 u Insulin Human Lispro (Humalog Kwikpen (Bkc)) 10 unit SQ BREAKFAST PABLO Insulin Human Lispro (Humalog Kwikpen (Bkc)) 10 unit SQ DINNER PABLO Insulin Human Lispro (Humalog Kwikpen (Bkc)) 10 unit SQ LUNCH PABLO Methocarbamol (Methocarbamol) 750 mg PO Q6H PRN PRN PRN Reason: Muscle Aches Last Admin: 06/04/18 03:12 Dose: 750 mg Multivitamins ([facility]itamin) [facility] Last Admin: 06/04/18 07:36 Dose: 1 tablet Nicotine (Nicoderm Cq (Pbkc)) 21 mg TRANSDERM. DAILY [facility] Last Admin: 06/03/18 07:33 Dose: 21 mg Nutritional Formula (Lactose Free) (Glucerna Shake) 120 ml PO 4X/DAY [facility] Last Admin: 06/03/18 22:25 Dose: 120 ml Thiamine HCl (Vitamin B1) [facility] Last Admin: 06/04/18 07:36 Dose: 100 mg Medical Necessity - Tobacco Use Smoking Status: Heavy Smoker (>10/day) Tobacco Use: Cigarettes Assessment/Plan All Active Problems (Last Updated 06/02/18 @ 15:27 by Charles Odonnell DO) Alcohol withdrawal (Acute) Opiate withdrawal (Acute) 1. Acute heroin/opiate withdrawal pt with CINA score of 15 Patient will be started on the Subutex taper for medical stabilization for opiates. Plus patient also have other medications to help her with other somatic symptoms. [employer] to facilitate outpatient follow-up once patient can be discharged. Anticipated date of discharge will be June 05. Patient states that she does not share needles but does reuses needles. Check hepatitis C antibody as well HIV 2. Alcohol abuse Patient drinks a pint of vodka per day Patient had a calculated CIWA score of 18, however some this may be overlapped with her opiate withdrawal I am going to hold off on any scheduled benzodiazepines at this time as a feel most of her symptoms are probably related with opiate withdrawal rather than alcohol withdrawal. Patient will have as needed lorazepam for symptoms do get severe enough and if she does start to get more severe than we could certainly reassess and put her on scheduled benzodiazepines but I would like to hold off at this point in time as I do not feel that her symptoms are completely attributable to alcohol rather opiate withdrawal. Patient be on a multivitamin Patient received 4mg of ativan and 50mg of Librium this AM I am still concerned her symptoms may not be acute alcohol withdrawal, and now patient is lethargic, likely from medication DC Ativan altogether 3. Diabetes mellitus type 1 Uncontrolled No evidence of DKA/HHS Patient had blood sugar is high as in the 800s but some this may be due to some dietary non-discretion of his further facilitated by staff giving her snacks of the [employer] basket. Advised staff that the patient is no longer has access to that given that she is a type I diabetic. Will check periodic with meals blood glucose Patient still confused and therefore cannot be interested at this time to manage her insulin pump. They have increased her Levemir to 30 and patient did receive 20 mg earlier this morning we will give her an additional 10 units. Additionally, add 10 units of NovoLog with meals plus sliding scale. Alexys patient's blood sugars will remain stable and that we can hold off on giving her Levemir tomorrow so that she can manage her insulin pump. But will depend on her mental status at that time which will hopefully be improved 4. Toxic encephalopathy apparently patient was confused last night, unclear how confused, but she is likely much worse now, which I feel is due to too many sedating medications Was improved last night but patient was up all night apparently and now is sleeping and difficult to arouse. Again, hold potentiating medications. 5. Venous thromboembolism risk: Low. Encourage patient to ambulate. Code Visit Inpatient E&M: 67822 Subs Hosp L2
--- NOTE | 2018-06-04 10:03 | PN_ITS ---
Patient Problems: Active and Suspected Problems (Last Updated 06/02/18 @ 15:27 by Charles Odonnell DO ) Alcohol withdrawal (Acute) Opiate withdrawal (Acute) Subjective: Was yesterday and ambulating and mentating properly after the initial encephalopathy. This morning, patient is very somnolent and difficult to arouse so no history can be obtained directly from time. Patient has not received any potentiating medications this morning with the exception of her Suboxone. Given the fact that the patient is a [facility] patient patient did receive numerous candies and baked goods from the [employer] basket by the [employer]. Vitals/I&O's: Vital Signs Temp Pulse Resp BP Pulse Ox 36.8 C 70 18 136/92 H 99 06/04/18 02:49 06/04/18 04:49 06/04/18 02:49 06/04/18 04:49 06/04/18 02:46 Oxygen Delivery Method Room Air Weight: 66.7 kg Body Mass Index (BMI) 23.7 Intake and Output for Last 24 Hours 06/02/18 06/03/18 06/04/18 23:59 23:59 23:59 Intake Total 400 / 400 1340 / 1340 637 / 637 Balance 400 / 400 1340 / 1340 637 / 637 General: - - Somnolent. Afebrile. Awakes slightly to voice but then quickly dozes off HEENT: Atraumatic, Normocephalic Oral: Moist Mucosa, No Gingival or Mucosal Lesions/ Ulcerations Neck: No Nodes, Thyroid Normal Size and Texture Lungs: Clear to auscultation, Normal air movement, No rhonchi, No wheeze Cardiovascular: Regular rate, Regular Rhythm, Normal S1, Normal S2, No murmurs Abdomen: Bowel Sounds Present, Soft, Non Tender, Non-Distended, No Hepato- splenomegaly Extremities: No edema, No Calf Tenderness Skin: No rashes, No breakdown Laboratory Results 06/03/18 09:28: Glucose 760 H* 06/03/18 10:54: B-Natriuretic Peptide 46.3 06/03/18 11:18: Sodium 136, Potassium 3.9, Chloride 98, Carbon Dioxide 26.0, Anion Gap 12, BUN 18, Creatinine 1.07 H, Estim Creat Clear Calc 71.97, Est GFR ( MDRD) Af Amer 77, Est GFR (MDRD) Non-Af 64, BUN/Creatinine Ratio 16.8, Glucose 457 H*, Calcium 8.8 06/03/18 11:28: POC Glucose > 500 H* 06/03/18 13:45: POC Glucose 236 H 06/03/18 16:44: POC Glucose 69 L 06/03/18 18:49: POC Glucose 219 H 06/03/18 22:20: POC Glucose 220 H 06/04/18 02:42: POC Glucose > 500 H* 06/04/18 03:25: WBC 5.9, RBC 4.44, Hgb 13.1, Hct 37.8, MCV 85.1, MCH 29.5, MCHC 34.7, RDW 12.6, RDW Differential 38.4, Plt Count 210, MPV 11.0, Immature Gran % (Auto) 0.200, Neut % (Auto) 66.4, Lymph % (Auto) 23.2, [place] % (Auto) 7.7, Eos % (Auto) 2.2, Baso % (Auto) 0.3, Absolute Neuts (auto) 3.9, Absolute Lymphs (auto ) 1.38, Total Counted Not Reportable 06/04/18 03:25: Sodium Cancelled, Potassium Cancelled, Chloride Cancelled, Carbon Dioxide Cancelled, Anion Gap Cancelled, BUN Cancelled, Creatinine Cancelled, Estim Creat Clear Calc Cancelled, Est GFR (MDRD) Af Amer Cancelled, Est GFR (MDRD) Non-Af Cancelled, BUN/Creatinine Ratio Cancelled, Glucose Cancelled, Calcium Cancelled 06/04/18 03:25: Glucose Cancelled 06/04/18 03:25: Acetone Level NEGATIVE 06/04/18 03:25: Sodium 131 L, Potassium 5.4 H, Chloride 93 L, Carbon Dioxide 24.0, Anion Gap 14, BUN 20 H, Creatinine 1.25 H, Estim Creat Clear Calc 61.61, Est GFR (MDRD) Af Amer 65, Est GFR (MDRD) Non-Af 53 L, BUN/Creatinine Ratio 16.0 , Glucose 878 H*, Calcium 8.5 06/04/18 03:25: Serum Osmolality 322 H 06/04/18 05:25: POC Glucose > 500 H* 06/04/18 05:35: Glucose 733 H* 06/04/18 07:30: Sodium 136, Potassium 3.6, Chloride 99, Carbon Dioxide 24.0, Anion Gap 13, BUN 17, Creatinine 1.03 H, Estim Creat Clear Calc 74.76, Est GFR ( MDRD) Af Amer 81, Est GFR (MDRD) Non-Af 67, BUN/Creatinine Ratio 16.5, Glucose 453 H*, Calcium 8.2 L 06/04/18 07:57: POC Glucose 335 H 06/04/18 09:50: Sodium Pending, Potassium Pending, Chloride Pending, Carbon Dioxide Pending, Anion Gap Pending, BUN Pending, Creatinine Pending, Est GFR ( MDRD) Af Amer Pending, Est GFR (MDRD) Non-Af Pending, BUN/Creatinine Ratio Pending, Glucose Pending, Calcium Pending Current Medications Acetaminophen (Tylenol) 500 mg PO Q4H PRN PRN PRN Reason: Temp > 100.4 F Buprenorphine HCl (Buprenorphine Hcl) 2 mg SL Q12H PABLO PRN Reason: Taper Stop: 06/05/18 19:59 Last Admin: 06/04/18 07:45 Dose: 2 mg Clonidine (Catapres) 0.1 mg PO Q2H PRN PRN PRN Reason: Hot/Cold Sweats or Anxiety Last Admin: 06/04/18 04:49 Dose: 0.1 mg Dextrose (D50w Syringe) 0 gm IV X1 PRN; Protocol PRN Reason: Hypoglycemia Dicyclomine HCl (Bentyl) 20 mg PO Q6H PRN PRN PRN Reason: abdominal discomfort Last Admin: 06/02/18 16:15 Dose: 20 mg Fluoxetine HCl (Prozac) 20 mg PO DAILY [facility] Last Admin: 06/03/18 07:34 Dose: 20 [facility] Last Admin: 06/04/18 07:36 Dose: 1 mg Gabapentin ([facility]urontin) [facility] Last Admin: 06/04/18 07:36 Dose: 300 mg Gabapentin (Neurontin) 600 mg PO QHS [facility] Last Admin: 06/03/18 22:25 Dose: 600 mg Glucagon () 1 mg IM .X1 PRN PRN Reason: Hypoglycemia Hydroxyzine HCl (Vistaril Vial) 50 mg IM Q6H PRN PRN PRN Reason: Breakthrough Anxiety Hydroxyzine Pamoate (Vistaril Pamoate Capsule) 50 mg PO Q6H PRN PRN PRN Reason: Mild Anxiety (score 1/3) Last Admin: 06/04/18 02:50 Dose: 50 mg Sodium Chloride () 1,000 mls @ 250 mls/hr IV .Q4H [facility] Last Admin: 06/04/18 08:54 Dose: 250 mls/hr Ibuprofen (Motrin) 600 mg PO Q8H PRN PRN PRN Reason: Mild-Moderate Pain (1-5/10) Last Admin: 06/04/18 04:31 Dose: 600 mg Insulin Glargine (Lantus (Bkc)) 30 units SC BREAKFAST PABLO Insulin Human Lispro (Humalog Kwikpen (Bkc)) 0 unit SC Q2H PABLO PRN Reason: Protocol Last Admin: 06/04/18 08:07 Dose: 5 u Insulin Human Lispro (Humalog Kwikpen (Bkc)) 10 unit SQ BREAKFAST PABLO Insulin Human Lispro (Humalog Kwikpen (Bkc)) 10 unit SQ DINNER PABLO Insulin Human Lispro (Humalog Kwikpen (Bkc)) 10 unit SQ LUNCH PABLO Methocarbamol (Methocarbamol) 750 mg PO Q6H PRN PRN PRN Reason: Muscle Aches Last Admin: 06/04/18 03:12 Dose: 750 mg Multivitamins ([facility]ivitamin) [facility] Last Admin: 06/04/18 07:36 Dose: 1 tablet Nicotine (Nicoderm Cq (Pbkc)) 21 mg TRANSDERM. DAILY [facility] Last Admin: 06/03/18 07:33 Dose: 21 mg Nutritional Formula (Lactose Free) (Glucerna Shake) 120 ml PO 4X/DAY [facility] Last Admin: 06/03/18 22:25 Dose: 120 ml Thiamine HCl (Vitamin B1) [facility] Last Admin: 06/04/18 07:36 Dose: 100 mg Medical Necessity - Tobacco Use Smoking Status: Heavy Smoker (>10/day) Tobacco Use: Cigarettes Assessment/Plan All Active Problems (Last Updated 06/02/18 @ 15:27 by Charles Odonnell DO) Alcohol withdrawal (Acute) Opiate withdrawal (Acute) 1. Acute heroin/opiate withdrawal * pt with CINA score of 15 * Patient will be started on the Subutex taper for medical stabilization for opiates. Plus patient also have other medications to help her with other somatic symptoms. * [employer] to facilitate outpatient follow-up once patient can be discharged. Anticipated date of discharge will be June 05. * Patient states that she does not share needles but does reuses needles. * Check hepatitis C antibody as well HIV 2. Alcohol abuse * Patient drinks a pint of vodka per day * Patient had a calculated CIWA score of 18, however some this may be overlapped with her opiate withdrawal * I am going to hold off on any scheduled benzodiazepines at this time as a feel most of her symptoms are probably related with opiate withdrawal rather than alcohol withdrawal. * Patient will have as needed lorazepam for symptoms do get severe enough and if she does start to get more severe than we could certainly reassess and put her on scheduled benzodiazepines but I would like to hold off at this point in time as I do not feel that her symptoms are completely attributable to alcohol rather opiate withdrawal. * Patient be on a multivitamin * Patient received 4mg of ativan and 50mg of Librium this AM * I am still concerned her symptoms may not be acute alcohol withdrawal, and now patient is lethargic, likely from medication * DC Ativan altogether 3. Diabetes mellitus type 1 * Uncontrolled * No evidence of DKA/HHS * Patient had blood sugar is high as in the 800s but some this may be due to some dietary non-discretion of his further facilitated by staff giving her snacks of the [employer] basket. Advised staff that the patient is no longer has access to that given that she is a type I diabetic. * Will check periodic with meals blood glucose * Patient still confused and therefore cannot be interested at this time to manage her insulin pump. They have increased her Levemir to 30 and patient did receive 20 mg earlier this morning we will give her an additional 10 units. Additionally, add 10 units of NovoLog with meals plus sliding scale. * Alexys patient's blood sugars will remain stable and that we can hold off on giving her Levemir tomorrow so that she can manage her insulin pump. But will depend on her mental status at that time which will hopefully be improved 4. Toxic encephalopathy * apparently patient was confused last night, unclear how confused, but she is likely much worse now, which I feel is due to too many sedating medications * Was improved last night but patient was up all night apparently and now is sleeping and difficult to arouse. * Again, hold potentiating medications. 5. Venous thromboembolism risk: Low. Encourage patient to ambulate. Code Visit Inpatient E&M: 59932 Subs Hosp L2
[2018-06-04 10:08] LABS: Anion Gap 10 (5-15); BUN 16 mg/dL (7-18); BUN/Creat Ratio 18.3 RATIO (10-20); Calcium,Total 8.3 mg/dL (8.5-10.1); Chloride 100 mmol/L (98-107); Creatinine, Serum 0.87 mg/dL (0.55-1.02); EST Glomerular Filtration Rate 81 mL/min (>60); Est Glom Filt Rate - Afr Amer 98 mL/min (>60); Estimated Creatinine Clearance 88.51 ml/min; Glucose 194 mg/dL (74-106); Potassium 3.4 mmol/L (3.5-5.1); Sodium Level 139 mmol/L (136-145)
[2018-06-04] MEDS: Glucerna Shake 120 ML LIQUID PO ×2 (10:18→14:00)
[2018-06-04] MEDS: FLUoxetine 20 MG Capsule PO (10:19)
[2018-06-04 10:21] LABS: Bedside Glucose 240 mg/dL (70-110)
[2018-06-04] MEDS: Insulin Lispro 100 UNIT/ML INSULN.PEN 10 UNIT SQ ×2 (12:27→17:35)
[2018-06-04 12:30] LABS: Bedside Glucose 217 mg/dL (70-110)
[2018-06-04 14:06] LABS: Bedside Glucose 272 mg/dL (70-110)
[2018-06-04] MEDS: Dicyclomine 10 MG Capsule 20 MG PO (14:16)
[2018-06-04 16:31] LABS: Bedside Glucose 335 mg/dL (70-110)
[2018-06-04 18:31] LABS: Bedside Glucose 425 mg/dL (70-110)
[2018-06-04 21:06] LABS: Bedside Glucose 273 mg/dL (70-110)
[2018-06-04] MEDS: Gabapentin 600 MG Tablet PO (21:36)
[2018-06-04 23:01] LABS: Bedside Glucose 237 mg/dL (70-110)
[2018-06-05] MEDS: cloNIDine HCl 0.1 MG Tablet PO (00:23)
[2018-06-05] MEDS: Insulin Lispro 100 UNIT/ML INSULN.PEN SC ×4 (00:27→08:24)
[2018-06-05 00:36] LABS: Bedside Glucose 169 mg/dL (70-110)
[2018-06-05] MEDS: 0.45% Normal Saline 1,000 ML 250 ML IV ×2 (00:46→05:55)
[2018-06-05] MEDS: hydrOXYzine 50 MG/ML Vial IM (00:46)
[2018-06-05 02:00] VITALS: RESP 16
[2018-06-05 04:57] VITALS: RESP 16
[2018-06-05 05:01] LABS: Bedside Glucose 213 mg/dL (70-110)
[2018-06-05 05:53] VITALS: RESP 16
[2018-06-05 06:12] VITALS: BP 134/72; PULSE 75; RESP 16; TEMP 36.8; O2SAT 96
[2018-06-05 07:20] LABS: Bedside Glucose 310 mg/dL (70-110)
[2018-06-05 08:13] VITALS: BP 146/90; PULSE 78; PULSE 79; RESP 18; TEMP 36.2; TEMP 36.3; O2SAT 98
[2018-06-05] MEDS: Buprenorphine HCl 2 MG TAB.SUBL SL (08:23)
[2018-06-05] MEDS: Multivitamins,Therapeutic Tablet 1 TABLET PO (08:24)
[2018-06-05] MEDS: Insulin Lispro 100 UNIT/ML INSULN.PEN 10 UNIT SQ (08:24)
[2018-06-05] MEDS: Folic Acid 1 MG Tablet PO (08:24)
[2018-06-05] MEDS: FLUoxetine 20 MG Capsule PO (08:25)
[2018-06-05] MEDS: Gabapentin 300 MG Capsule PO (08:25)
[2018-06-05] MEDS: Thiamine Hydrochloride 100 MG Tablet PO (08:28)
--- NOTE | 2018-06-05 08:33 | PCM.DC ---
- Discharge Diagnoses Current Active Problems: Current Active and Chronic Problems (Last Updated 06/02/18 @ 15:27 by Charles Odonnell DO) Alcohol withdrawal (Acute) Opiate withdrawal (Acute) You will use the following diet at home:: Calorie/Carbohydrate Controlled (specify 1200, 1400, etc) - 1800 Your food should be the consistency of: Regular Your liquids should be the consistency of: Regular/Thin Discharge Activity: Return to Normal Activity Call your doctor if you observe: - - perisistent hyperglycemia Allergies/Adverse Reactions: Allergies No Known Allergies Allergy (Verified 06/02/18 15:01) Medications to take at Discharge Fluoxetine [Prozac] 20 mg PO DAILY 06/02/18 Gabapentin 600 mg PO QHS 06/02/18 Gabapentin [Neurontin] 300 mg PO DAILY 06/02/18 Insulin Lispro [Humalog] 0 unit 06/02/18 Multivitamins,Therapeutic [Multivitamin] 1 tablet PO DAILYCM tablet 06/05/18 Primary Care Physician: Care Physician,No Primary [Primary Care Provider] - Within 2 Weeks Test Results: Test results from this visit will be discussed in further detail at your follow-up appointment, if applicable. Please Follow Up With: Regional Sales Manager When: next scheduled appointment. Proposed Discharge Date: 06/05/18
[2018-06-05 08:36] LABS: Bedside Glucose 357 mg/dL (70-110)
--- NOTE | 2018-06-05 08:38 | DS.PCM_ITS ---
Discharge Date and Diagnosis - Problem List Patient Problems: Active and Suspected Problems (Last Updated 06/02/18 @ 15:27 by Charles Odonnell DO ) Alcohol withdrawal (Acute) Opiate withdrawal (Acute) Date of Admission: 06/02/18 Date of Discharge: 06/05/18 - Primary Discharge Diagnosis Active and Suspected Problems (Last Updated 06/02/18 @ 15:27 by Charles Odonnell DO ) Alcohol withdrawal (Acute) Opiate withdrawal (Acute) Hospital Course and Treatment Operations: None Procedures: None Summary of Care Provided: The patient is a 28 year old F presents for alcohol and opiate withdrawal treatment. As measured for the most patient's symptoms are related with her opiate rather than all. Patient did have some confusion and then received Ativan, Librium and Haldol. Afterwards patient was very somnolent. Patient is a type I diabetic on insulin pump and then had to be switched over to basal and prandial insulin and turn her pump off. Blood sugars did get as high as 800 patient never developed diabetic ketoacidosis. Patient was somnolent the following day but much improved but solid that point time patient was up all night is just was not sleeping so does elected to continue with the basal and prandial insulin. Today the patient is a much better so patient may resume insulin pump. Patient has completed her 3 days of Subutex and will be discharged to start her next phase of her addiction treatment. [] Discharge Diet: 1800 Calorie Control Diet Discharge Activity: Return to Normal Activity Call your doctor if you observe: - - perisistent hyperglycemia Home Medications: Medications to take at Discharge Fluoxetine [Prozac] 20 mg PO DAILY 06/02/18 Gabapentin 600 mg PO QHS 06/02/18 Gabapentin [Neurontin] 300 mg PO DAILY 06/02/18 Insulin Lispro [Humalog] 0 unit 06/02/18 Multivitamins,Therapeutic [Multivitamin] 1 tablet PO DAILYCM tablet 06/05/18 Primary Care Physician: Care Physician,No Primary [Primary Care Provider] - Within 2 Weeks Please Follow Up With: [employer] When: next scheduled appointment. Disposition: Home Minutes spent on discharge:: 28 Patient Condition:: Good Medical Necessity - Tobacco Use Smoking Status: Heavy Smoker (>10/day) Tobacco Use: Cigarettes Meaningful Use Info Meaningful Use Diagnoses (Choose all that apply): None applicable Code Visit Inpatient E&M: 16543 Disch Hosp
[2018-06-05 11:20] LABS: Hep C Antibodies >11.0 s/co ratio (0.0-0.9)
== END 2018-06-05 09:32 | disposition home or self-care (01) | DRG 434 ==
LOC: MS2 14:20 → MS3 06-03 14:01
PROVIDERS: Hospitalist
DX: F11.23 Opioid dependence with withdrawal (principal); G92 Toxic encephalopathy; E10.40 Type 1 diabetes mellitus with diabetic neuropathy, unspecified; E10.65 Type 1 diabetes mellitus with hyperglycemia; Z79.4 Long term (current) use of insulin; Z96.41 Presence of insulin pump (external) (internal); F17.210 Nicotine dependence, cigarettes, uncomplicated; F10.239 Alcohol dependence with withdrawal, unspecified
CPT/HCPCS: 36415; 80048; 80053; 80307; 82009; 82947; 82962; 83880; 83930; 84703; 85025; 86703; 86803; 99406; J7030; A4216